=== PATIENT | male | born 2000 | race Caucasian/White ===

== ENCOUNTER 2023-02-28 14:38 | Emergency (ER) | payer BC ==
[~2023-02-28] VITALS: Ht 177.8 cm; Wt 77.3 kg
[2023-02-28 14:51] VITALS: BP 145/89
[2023-02-28 15:31] LABS: PH-URINE 5.5 (5.0 - 8.0); URINE APPEARANCE CLOUDY (CLEAR); URINE COLOR YELLOW (YELLOW)
[2023-02-28 15:32] LABS: URINE BILIRUBIN 2+ (NEGATIVE); URINE BLOOD TRACE-INTACT (NEGATIVE); URINE GLUCOSE NEGATIVE (NEGATIVE); URINE KETONE 3+ (NEGATIVE); URINE NITRATE NEGATIVE (NEGATIVE); URINE PROTEIN(semi-quant) 1+ (NEGATIVE)
[2023-02-28 15:33] LABS: URINE LEUKOCYTE ESTERASE NEGATIVE (NEGATIVE); URINE MUCUS PRESENT (NOT PRESENT)
[2023-02-28 15:36] LABS: LIPASE 7 U/L (8-78)
[2023-02-28] MEDS ORDERED: BACTRIM DS TAB1 EACH PO (16:23)
== END 2023-02-28 16:30 | disposition home or self-care (01) ==
LOC: ED 14:38
PROVIDERS: Physician Assistant
DX: N39.0 Urinary tract infection, site not specified (principal)
CPT/HCPCS: Q9967